=== PATIENT | male | born 2000 | race American Indian/Alaskan Native ===

== ENCOUNTER 2019-12-23 19:11 | Emergency (ER) | payer SELFPAY ==
[2019-12-23 19:38] VITALS: BP 127/72
== END 2019-12-23 20:20 | disposition left against medical advice (07) ==
LOC: ED 19:11
DX: R22.2 Localized swelling, mass and lump, trunk (principal); Z53.21 Procedure and treatment not carried out due to patient leaving prior to being seen by health care provider

== ENCOUNTER 2020-01-10 08:03 | Emergency (ER) | payer SELFPAY ==
[2020-01-10 08:27] VITALS: BP 141/76
[2020-01-10] MEDS ORDERED: dexAMETHasone 20 MG/5 ML VIAL IV ONE (09:58)
--- NOTE | 2020-01-10 10:04 | Emergency Department Report ---
{null, ED ENT HPI - General Chief complaint: Sore Throat Stated complaint: THROAT/TONSILS Time Seen by Provider: 01/10/20 09:53 Source: patient Mode of arrival: Ambulatory Limitations: No Limitations - History of Present Illness Initial comments: 19-year-old -Malagasy male patient without significant past medical history presents with complaints of sore throat and painful swallowing x4 days. He denies any fever, cough or rash. He rates his pain as a 8/10 in severity. MD complaint: sore throat -: Sudden Severity scale (0 -10): 8 Quality: aching, sharp Consistency: constant Improves with: none Worsens with: swallowing Associated Symptoms: denies: fever, cough - Related Data Previous Rx's Medication Instructions Recorded Last Taken Type Amoxicillin [Trimox CAP] 500 mg PO BID 10 Days #20 capsule 01/10/20 Unknown Rx Ibuprofen [Motrin 800 MG tab] 800 mg PO Q8HR PRN #10 tablet 01/10/20 Unknown Rx Allergies Allergy/AdvReac Type Severity Reaction Status Date / Time No Known Allergies Allergy Verified 12/23/19 19:17 ED Dental HPI - General Chief complaint: Sore Throat Stated complaint: THROAT/TONSILS Time Seen by Provider: 01/10/20 09:53 Source: patient Mode of arrival: Ambulatory Limitations: No Limitations - Related Data Previous Rx's Medication Instructions Recorded Last Taken Type Amoxicillin [Trimox CAP] 500 mg PO BID 10 Days #20 capsule 01/10/20 Unknown Rx Ibuprofen [Motrin 800 MG tab] 800 mg PO Q8HR PRN #10 tablet 01/10/20 Unknown Rx Allergies Allergy/AdvReac Type Severity Reaction Status Date / Time No Known Allergies Allergy Verified 12/23/19 19:17 ED Review of Systems ROS: Stated complaint: THROAT/TONSILS Other details as noted in HPI Constitutional: denies: chills, fever ENT: throat pain. denies: ear pain Respiratory: denies: cough, shortness of breath Cardiovascular: denies: chest pain Gastrointestinal: denies: nausea, vomiting, diarrhea Skin: denies: rash, lesions Neurological: denies: headache ED Past Medical Hx - Past Medical History Previous Medical History?: No - Surgical History Past Surgical History?: No - Social History Smoking Status: Current Every Day Smoker Substance Use Type: Marijuana - Medications Home Medications: Home Medications Medication Instructions Recorded Confirmed Last Taken Type Amoxicillin [Trimox CAP] 500 mg PO BID 10 Days #20 capsule 01/10/20 Unknown Rx Ibuprofen [Motrin 800 MG tab] 800 mg PO Q8HR PRN #10 tablet 01/10/20 Unknown Rx ED Physical Exam - General Limitations: No Limitations General appearance: alert, in no apparent distress, obese - Head Head exam: Present: atraumatic, normocephalic - Eye Eye exam: Present: normal appearance. Absent: scleral icterus - Expanded ENT Exam Expanded Mouth exam: Absent: drooling, trismus, muffled voice Throat exam: Positive: tonsillar erythema, tonsillomegaly, tonsillar exudate. Negative: R peritonsillar mass, L peritonsillar mass - Neck Neck exam: Present: full ROM, lymphadenopathy (Mild anterior with tenderness to palpation) - Respiratory Respiratory exam: Present: normal lung sounds bilaterally. Absent: respiratory distress - Cardiovascular Cardiovascular Exam: Present: regular rate, normal rhythm. Absent: systolic murmur, diastolic murmur, rubs, gallop - Back Exam Back exam: Present: normal inspection - Neurological Exam Neurological exam: Present: alert, oriented X3 - Psychiatric Psychiatric exam: Present: normal affect, normal mood - Skin Skin exam: Present: warm, dry, intact, normal color. Absent: rash, cyanosis, diaphoretic, petechiae ED Course Vital Signs 01/10/20 08:27 Temperature 98.7 F Pulse Rate 85 Respiratory 16 Rate Blood Pressure 141/76 [Right] O2 Sat by Pulse 97 Oximetry ED Medical Decision Making - Medical Decision Making Patient here with complaints of sore throat and painful swallowing for the past 4 days. On exam, he has erythema and swelling bilaterally of his tonsils with mild exudate. No trismus, drooling, or hot potato voice noted. Patient symptoms are consistent with strep pharyngitis. His vitals are normal he is stable for discharge home with a prescription for amoxicillin. Recommend follow-up with his primary care provider within 5 to 7 days. Discussed very strict return precautions in great detail with patient who verbalizes understanding. Critical care attestation.: If time is entered above; I have spent that time in minutes in the direct care of this critically ill patient, excluding procedure time. ED Disposition Clinical Impression: Strep pharyngitis Disposition: TO HOME OR SELFCARE Is pt being admited?: No Condition: Stable Instructions: Strep Throat (ED) Prescriptions: Ibuprofen [Motrin 800 MG tab] 800 mg PO Q8HR PRN #10 tablet PRN Reason: pain Amoxicillin [Trimox CAP] 500 mg PO BID 10 Days #20 capsule Referrals: [facility] [Provider Group] - 3-5 Days Forms: Work/School Release Form(ED) }
== END 2020-01-10 10:29 | disposition home or self-care (01) ==
LOC: ED 08:03
DX: J02.0 Streptococcal pharyngitis (principal); F17.200 Nicotine dependence, unspecified, uncomplicated; F12.10 Cannabis abuse, uncomplicated; Z79.1 Long term (current) use of non-steroidal anti-inflammatories (NSAID); Z79.2 Long term (current) use of antibiotics
CPT/HCPCS: 96374; 99282; J1100

== ENCOUNTER 2020-01-13 00:24 | Emergency (ER) | payer SELFPAY ==
[2020-01-13 00:30] VITALS: BP 155/87
--- NOTE | 2020-01-13 01:09 | Emergency Department Report ---
[facility] Chief Complaint: Eye Problems Stated Complaint: PINK EYE STREP THROAT Time Seen by Provider: 01/13/20 01:08 ED Review of Systems ROS: Stated complaint: PINK EYE STREP THROAT Other details as noted in HPI ED Past Medical Hx - Past Medical History Previous Medical History?: No - Surgical History Past Surgical History?: No - Social History Smoking Status: Current Every Day Smoker Substance Use Type: Alcohol, Marijuana - Medications Home Medications: Home Medications Medication Instructions Recorded Confirmed Last Taken Type Amoxicillin [Trimox CAP] 500 mg PO BID 10 Days #20 capsule 01/10/20 Unknown Rx Ibuprofen [Motrin 800 MG tab] 800 mg PO Q8HR PRN #10 tablet 01/10/20 Unknown Rx Polymyxin B Sulf/Trimethoprim 1 drop OP QID 7 Days #1 bottle 01/13/20 Unknown Rx [Polytrim Eye Drops 65135zmhzq/0.1%] [facility] Exam - Exam General: Vital signs noted. No distress. Alert and acting appropriately. ED Course Vital Signs 01/13/20 00:27 Temperature 99.2 F Pulse Rate 94 H Respiratory 18 Rate Blood Pressure 155/87 O2 Sat by Pulse 97 Oximetry Critical care attestation.: If time is entered above; I have spent that time in minutes in the direct care of this critically ill patient, excluding procedure time. ED Disposition Clinical Impression: Acute bacterial conjunctivitis of both eyes Disposition: DC-01 TO HOME OR SELFCARE Is pt being admited?: No Does the pt Need Aspirin: No Condition: Stable Instructions: Conjunctivitis (ED) Prescriptions: Polymyxin B Sulf/Trimethoprim [Polytrim Eye Drops 79693dvlnh/0.1%] 1 drop OP QID 7 Days #1 bottle Referrals: PRIMARY CARE, [Primary Care Provider] - 3-5 Days
== END 2020-01-13 01:19 | disposition home or self-care (01) ==
LOC: ED 00:24
DX: H10.33 Unspecified acute conjunctivitis, bilateral (principal); F17.200 Nicotine dependence, unspecified, uncomplicated; F12.10 Cannabis abuse, uncomplicated; Z79.899 Other long term (current) drug therapy
CPT/HCPCS: 99282

== ENCOUNTER 2021-06-01 09:21 | Emergency (ER) | payer SELFPAY ==
[2021-06-01 09:51] VITALS: BP 152/77
[2021-06-01] MEDS ORDERED: LIDOCAINE-MPF (1%) 10 MG/1 ML VIAL 5 ML INFILTRATI ONE (11:10)
--- NOTE | 2021-06-01 11:16 | Emergency Department Report ---
ED ENT HPI - General Chief complaint: Sore Throat Stated complaint: SWOLLEN TONSIL Time Seen by Provider: 06/01/21 11:10 Source: patient Mode of arrival: Ambulatory Limitations: No Limitations - History of Present Illness Initial comments: Patient is a 20-year-old male presents emergency room with complaints of a sore throat that began 2 to 3 days ago. Patient states that he had oral intercourse approximately a week ago and then began feeling the discomfort a few days later. He states that he feels like his tonsils are swollen. He has associated pain with swallowing but is still able to swallow and tolerate p.o. intake. He denies any fever, nausea, vomiting, diarrhea, difficulty breathing, cough. No past medical history. No allergies to medications. - Related Data Previous Rx's Medication Instructions Recorded Last Taken Type Amoxicillin [Trimox CAP] 500 mg PO BID 10 Days #20 capsule 01/10/20 Unknown Rx Ibuprofen [Motrin 800 MG tab] 800 mg PO Q8HR PRN #10 tablet 01/10/20 Unknown Rx Polymyxin B Sulf/Trimethoprim 1 drop OP QID 7 Days #1 bottle 01/13/20 Unknown Rx [Polytrim Eye Drops 38016mpvlm/0.1%] Azithromycin [Zithromax TAB] 250 mg PO QDAY 5 Days #6 tablet 06/01/21 Unknown Rx Doxycycline Hyclate [Doxycycline 100 mg PO BID 7 Days #14 tab 06/01/21 Unknown Rx Hyclate TAB] Allergies Allergy/AdvReac Type Severity Reaction Status Date / Time No Known Allergies Allergy Verified 06/01/21 09:47 ED Dental HPI - General Chief complaint: Sore Throat Stated complaint: SWOLLEN TONSIL Time Seen by Provider: 06/01/21 11:10 Source: patient Mode of arrival: Ambulatory Limitations: No Limitations - Related Data Previous Rx's Medication Instructions Recorded Last Taken Type Amoxicillin [Trimox CAP] 500 mg PO BID 10 Days #20 capsule 01/10/20 Unknown Rx Ibuprofen [Motrin 800 MG tab] 800 mg PO Q8HR PRN #10 tablet 01/10/20 Unknown Rx Polymyxin B Sulf/Trimethoprim 1 drop OP QID 7 Days #1 bottle 01/13/20 Unknown Rx [Polytrim Eye Drops 64981ioofg/0.1%] Azithromycin [Zithromax TAB] 250 mg PO QDAY 5 Days #6 tablet 06/01/21 Unknown Rx Doxycycline Hyclate [Doxycycline 100 mg PO BID 7 Days #14 tab 06/01/21 Unknown Rx Hyclate TAB] Allergies Allergy/AdvReac Type Severity Reaction Status Date / Time No Known Allergies Allergy Verified 06/01/21 09:47 ED Review of Systems ROS: Stated complaint: SWOLLEN TONSIL Other details as noted in HPI Comment: All other systems reviewed and negative ED Past Medical Hx - Past Medical History Previous Medical History?: No - Surgical History Past Surgical History?: No - Social History Smoking Status: Current Every Day Smoker Substance Use Type: Alcohol, Marijuana - Medications Home Medications: Home Medications Medication Instructions Recorded Confirmed Last Taken Type Amoxicillin [Trimox CAP] 500 mg PO BID 10 Days #20 capsule 01/10/20 Unknown Rx Ibuprofen [Motrin 800 MG tab] 800 mg PO Q8HR PRN #10 tablet 01/10/20 Unknown Rx Polymyxin B Sulf/Trimethoprim 1 drop OP QID 7 Days #1 bottle 01/13/20 Unknown Rx [Polytrim Eye Drops 80267lewmm/0.1%] Azithromycin [Zithromax TAB] 250 mg PO QDAY 5 Days #6 tablet 06/01/21 Unknown Rx Doxycycline Hyclate [Doxycycline 100 mg PO BID 7 Days #14 tab 06/01/21 Unknown Rx Hyclate TAB] ED Physical Exam - General Limitations: No Limitations General appearance: alert, in no apparent distress - Head Head exam: Present: atraumatic, normocephalic - Eye Eye exam: Present: normal appearance - ENT ENT exam: Present: mucous membranes moist, other (bilateral tonsilar hypertrophy with exudates, uvula is midline, no uvular edema or deviation, airway is intact, no muffled voice, no trismus, no tongue elevation, no submandibular edema) - Respiratory Respiratory exam: Absent: respiratory distress, accessory muscle use - Neurological Exam Neurological exam: Present: alert, oriented X3 - Psychiatric Psychiatric exam: Present: normal affect, normal mood - Skin Skin exam: Present: warm, dry, intact ED Course Vital Signs 06/01/21 09:50 Temperature 99.1 F Pulse Rate 92 H Respiratory 20 Rate Blood Pressure 152/77 O2 Sat by Pulse 95 Oximetry ED Medical Decision Making - Medical Decision Making Patient is a 20-year-old male presents emergency room with complaints of a sore throat that began 2 to 3 days ago. Patient states that he had oral intercourse approximately a week ago and then began feeling the discomfort a few days later. He states that he feels like his tonsils are swollen. He has associated pain with swallowing but is still able to swallow and tolerate p.o. intake. He denies any fever, nausea, vomiting, diarrhea, difficulty breathing, cough. No past medical history. No allergies to medications. vss. on exam:bilateral tonsilar hypertrophy with exudates, uvula is midline, no uvular edema or deviation, airway is intact, no muffled voice, no trismus, no tongue elevation, no submandibular edema. Examination appears consistent with tonsillitis, could be secondary to gonorrhea or chlamydia. Patient given IM ceftriaxone. Pre scription for doxycycline and azithromycin to cover for strep. advised pt Please take medication as prescribed. Increase clear fluid intake. Gargle with warm salt water. throw away your toothbrush. Do not drink after others or allow others to drink after you. please follow-up with the clinic or the health department in order to receive a full STD panel. Please have any partner tested and treated as well. Avoid sexual or oral intercourse. Return to emergency room for new or worse symptoms. Critical care attestation.: If time is entered above; I have spent that time in minutes in the direct care of this critically ill patient, excluding procedure time. ED Disposition Clinical Impression: Tonsillitis, Concern about STD in male without diagnosis Disposition: DC-01 TO HOME OR SELFCARE Is pt being admited?: No Does the pt Need Aspirin: No Condition: Stable Instructions: Tonsillitis, [id number], Safe Sex Additional Instructions: Please take medication as prescribed. Increase clear fluid intake. Gargle with warm salt water. throw away your toothbrush. Do not drink after others or allow others to drink after you. please follow-up with the clinic or the health department in order to receive a full STD panel. Please have any partner tested and treated as well. Avoid sexual or oral intercourse. Return to emergency room for new or worse symptoms. Prescriptions: Doxycycline Hyclate [Doxycycline Hyclate TAB] 100 mg PO BID 7 Days #14 tab Azithromycin [Zithromax TAB] 250 mg PO QDAY 5 Days #6 tablet Referrals: PRIMARY CARE, [Primary Care Provider] - 2-3 Days [facility] [Outside] - 2-3 Days [facility] [Provider Group] - 2-3 Days Time of Disposition: 11:13 Print Language: NIGERIAN
== END 2021-06-01 11:51 | disposition home or self-care (01) ==
LOC: ED 09:21
DX: J03.90 Acute tonsillitis, unspecified (principal); Z20.2 Contact with and (suspected) exposure to infections with a predominantly sexual mode of transmission; F17.200 Nicotine dependence, unspecified, uncomplicated; F12.90 Cannabis use, unspecified, uncomplicated; Z72.89 Other problems related to lifestyle; Z79.899 Other long term (current) drug therapy
CPT/HCPCS: 96372; 99281; J0696